=== PATIENT | female | born 1995 | race Two or more races ===

== ENCOUNTER 2019-04-26 09:40 | Emergency (ER) | payer BC ==
[~2019-04-26] VITALS: Ht 152.4 cm; Wt 56.2 kg
[2019-04-26 10:05] VITALS: BP 104/66
--- NOTE | 2019-04-26 10:05 | NUR ---
ED Nurse Note: Pt started having sorethroat and bodyache since yesterday. Pain 9/10. Took Tamiflu and Naproxen but pain is still present. Oral temp 101.5F at triage, HR 109, ERMD aware. Will cont to monitor.
[2019-04-26] MEDS ORDERED: Dexamethasone 4mg/ml vial IM ONE (10:30)
[2019-04-26] MEDS ORDERED: Acetaminophen 500mg (ES) tab ORAL ONE (10:30)
[2019-04-26] MEDS ORDERED: Lidocaine 2% Visc 15ml soln ORAL ONE (10:45)
[2019-04-26] MEDS ORDERED: AMOXICILLIN500 MG ORAL (10:58)
[2019-04-26] MEDS ORDERED: TYLENOL EXTRA500 MG ORAL (10:58)
[2019-04-26 11:04] VITALS: BP 110/68
--- NOTE | 2019-04-26 11:04 | NUR ---
ER DISCHARGE NOTE: Patient is cleared to be discharged per ERMD, pt is aox4, on room air, with stable vital signs. pt was given dc and prescription instructions, pt was able to verbalize understanding, pt id band removed. pt is able to ambulate with steady gait. pt took all belongings.
--- NOTE | 2019-04-27 07:46 | Emergency Room Report ---
History of Present Illness General Chief Complaint: Sore Throat Source: Patient Present Illness HPI 23-year-old female presents ED for evaluation. Complaining of sore throat since yesterday. Pain is throbbing, 8 out of 10, nonradiating. Denies fevers or chills. Denies cough. Denies earache. States is painful to swallow. Denies sick contacts or recent travel. No other aggravating relieving factors. Denies any other associated symptoms Allergies: Coded Allergies: No Known Allergies (Unverified , 04/26/19) Patient History Past Medical History: none Past Surgical History: none Pertinent Family History: none Social History: Denies: smoking, alcohol use, drug use Last Menstrual Period: 03/17/19 Now: No Immunizations: UTD Reviewed Nursing Documentation: PMH: Agreed; PSxH: Agreed Nursing Documentation-PMH Past Medical History: No Stated History Review of Systems All Other Systems: negative except mentioned in HPI Physical Exam Vital Signs Date Time Temp Pulse Resp B/P (MAP) Pulse Ox O2 Delivery O2 Flow Rate FiO2 04/26/19 10:03 101.5 109 18 104/66 (79) 95 Room Air Sp02 EP Interpretation: reviewed, normal General Appearance: no apparent distress, alert, GCS 15, non-toxic Head: normocephalic Eyes: bilateral eye normal inspection, bilateral eye PERRL ENT: hearing grossly normal, no angioedema, normal voice, TMs + canals normal, uvula midline, pharyngeal erythema, tonsillar exudate Neck: full range of motion, supple, no meningismus, supple/symm/no masses Respiratory: normal inspection Cardiovascular #1: normal inspection Gastrointestinal: normal inspection Rectal: deferred Genitourinary: no CVA tenderness Musculoskeletal: normal inspection Neurologic: alert, oriented x3, responsive, motor strength/tone normal, sensory intact, speech normal Psychiatric: normal inspection Skin: normal inspection Lymphatic: normal inspection Medical Decision Making Diagnostic Impression: Primary Impression: Pharyngitis Qualified Codes: J02.9 - Acute pharyngitis, unspecified ER Course Hospital Course 23-year-old female presents to ED complaining of sore throat Differential diagnoses include: URI, pharyngitis, otitis media Clinical course Patient placed on stretcher. After initial history, physical exam reveals a young male in no acute distress. Bilateral TM unremarkable. There is pharyngeal erythema w/ tonsillar exudates. No lymphadenopathy. Clinical findings consistent with pharyngitis. Discussed findings with patient. Safe for discharge. Given Decadron and viscous lidocaine here. Will prescribe a prescription for antibiotics. States she has a PMD Diagnosis - pharyngitis Stable and discharged home with prescriptions for tylenol, amoxicillin. Instructed to followup with PMD. return to ED if symptoms recur or worsen Last Vital Signs Date Time Temp Pulse Resp B/P (MAP) Pulse Ox O2 Delivery O2 Flow Rate FiO2 04/26/19 11:04 101.5 104 18 110/68 96 Room Air Status: improved Disposition: HOME, SELF-CARE Condition: Stable Scripts Amoxicillin* (AMOXIL*) 500 Mg Capsule 500 MG ORAL THREE TIMES A DAY, #21 CAP Prov: Bennie Beyer MD 04/26/19 Acetaminophen* (TYLENOL EXTRA STRENGTH*) 500 Mg Tablet 500 MG ORAL Q8H PRN for Prn Headache/Temp > 101, #30 TAB 0 Refills Prov: Bennie Beyer MD 04/26/19 Referrals: NOT CHOSEN IPA/,REFERRING Patient Instructions: Pharyngitis, Tacs-ox-Konj Bennie Beyer MD Apr 27, 2019 07:46
== END 2019-04-26 11:04 | disposition home or self-care (01) ==
LOC: EMR 11:00
DX: J02.9 Acute pharyngitis, unspecified (principal)
CPT/HCPCS: 96372; 99283; J1100